=== PATIENT | male | born 1975 | race Caucasian/White ===

== ENCOUNTER 2024-02-20 06:00 | Outpatient (CLI) | payer MEDICAID, SELFPAY | END 2024-02-20 06:01 | disposition home or self-care (01) | LOC: SLEEP 03-30 15:31 | PROVIDERS: PCP Family Medicine; Visit Provider Family Medicine | DX: E66.9 Obesity, unspecified (principal) | CPT/HCPCS: 80053; 80061; 84439; 84443; 85025 ==

== ENCOUNTER → 2025-06-26 07:47 | Outpatient (BNVA) | payer MEDICAID, SELFPAY | PROVIDERS: PCP Family Medicine; Visit Provider Family Medicine | DX: Z12.5 Encounter for screening for malignant neoplasm of prostate (principal); R30.0 Dysuria; E66.9 Obesity, unspecified | CPT/HCPCS: 80053; 80061; 84153; 85025 ==